=== PATIENT | female | born 1945 | race Caucasian/White ===

== ENCOUNTER 2016-07-26 19:43 | Emergency (ER) | payer OTHER ==
--- NOTE | ~2016-07-26 | EKG ---
PATIENT: JUANCARLOSJuly UNIT #: [id number] Ventricular Rate: 69 BPM Atrial Rate: 69 BPM P-R Interval: 144 ms QRS Duration: 76 ms Q-T Interval: 394 ms QTC Calculation(Bezet): 422 ms P Oxford: 86 degrees Calculated R Oxford: 74 degrees Calculated T Oxford: 63 degrees Diagnosis Line: Normal sinus rhythm Diagnosis Line: Left ventricular hypertrophy with repolarization Diagnosis Line: abnormality Diagnosis Line: Abnormal ECG Diagnosis Line: When compared with ECG of 17-MAY-2016 16:10, Diagnosis Line: Criteria for Anterior infarct are no longer Diagnosis Line: Present Diagnosis Line: Non-specific change in ST segment in Anterior Diagnosis Line: leads Diagnosis Line: T wave inversion now evident in Lateral leads Diagnosis Line: Confirmed by MARINE RODNEY MD ([id number]) on 07/27/2016 Diagnosis Line: 6:33:34 AM INTERPRETING MD: RONEL LOMBARDO
--- NOTE | ~2016-07-26 | CR72 ---
[facility] A Service of [facility] RADIOLOGY TEXT RESULTS PATIENT: JUANCARLOS LOCATION: [employer] : [birth year] UNIT #: [id number] AGE: [address]: Eliud Rao MD SEX: F ORDER DR: [id number] [facility] [address] [place], [place] [address] [id number] MR#: [id number] Acc #: [id number] NAME: JUANCARLOSJuly : 1945 SEX: F STUDY DATE/TIME: 07/26/2016 19:17 UNIT: [employer] ROOM: STUDY DESCRIPTION: CR Chest Single View Portable Attending Physician: Eliud Rao M.D. Ordering Physician: Eliud Rao M.D. Primary Care Physician: Solo Echols M.D. MEDICAL IMAGING REPORT This report is preliminary unless electronic signature is present EXAM Portable chest HISTORY Near-syncopal episode today, weakness. COMPARISON 05/01/2016 FINDINGS Portable view of the chest demonstrates pulmonary hyperinflation and hyperlucency compatible with emphysema. No acute airspace disease or consolidation. Stable right upper lobe nodule. Heart and mediastinum unremarkable. Osseous structures unremarkable for age. Dictated by... Billie Forrest M.D. THIS IS AN ELECTRONICALLY VERIFIED REPORT Billie Forrest M.D. at 07/27/2016 6:36 PM RUDDY/tabatha TD: 07/26/2016 23:26 JOB #: [id number] MEDICAL IMAGING REPORT Page 1 of 1 COPY
[2016-07-26 19:43] LABS: BASOPHIL# 0.1 X10e3 (0-0.3); BASOPHIL% 0.8 % (0-2.5); EOSINOPHIL# 0.1 X10e3 (0-0.7); EOSINOPHIL% 0.8 % (0.0-7.0); HEMATOCRIT 39.8 % (35.0-45.0); HEMOGLOBIN 13.3 gm/dL (12.0-16.0); LYMPHOCYTE# 1.5 X10e3 (1.0-3.5); LYMPHOCYTE% 22.7 % (17.0-45.0); MEAN CELL VOLUME 92.3 FL (83-96); MEAN CORPUSCULAR HEMOGLOBIN 30.9 PG (28-34); MEAN CORPUSCULAR HGB CONC 33.4 g/dL (30-36); MEAN PLATELET VOLUME 9.5 FL (6.5-11.5); MONOCYTE# 0.5 X10e3 (0-1.0); MONOCYTE% 7.2 % (3.0-12.0); NEUTROPHIL# 4.6 X10e3 (1.5-7.1); NEUTROPHIL% 68.5 % (40-75); PLATELET COUNT 273 X10e3 (140-420); RED BLOOD COUNT 4.31 X10e (3.90-5.30); WHITE BLOOD COUNT 6.7 X10e3 (4.0-10.5)
[~2016-07-26 19:43] MED LIST: ALB/IPRATROPIUM/1 E1 INH; ALBUTEROL17 GM INH; ALLEGRA PO; AMITRIPTYLINE H50 MG PO; AMITRYPTYLINE PO; AMOXICILLIN875 MG PO; ASPIRIN81 M2 PO; ASPIRIN81 MG; ATARAX; AUGMENTIN PO; BENTYL20 MG PO; CARVEDILOL3.125 MG; CELEXA20 MG PO; CIPRO PO; CLARITIN10 M2 PO; EXCEDRIN EXTRA1 TAB PO; FIORICET PO; FIORICET1 TAB PO; FLEXERIL PO; FLONASE 0.05% N16 G1; FLONASE16 GM; FOSAMAX PO; FOSAMAX40 MG PO; FOSAMAX70 MG PO; GABAPENTIN300 MG PO; GABAPENTIN400 MG; GLIPIZIDE10 MG; GLIPIZIDE5 MG/BOTT1 PO; GLUCOMETER DE1 STRIP IN; GLUCOMETER DEX1 PKT IN; GLUCOPHAGE500 M1 PO; HUMALOG INSULIN SQ; HUMALOG MI100 UNIT/1; HUMALOG MI100 UNIT/2; HUMALOG MIX 75/10 ML SQ; HUMALOG100 U/M1; HUMALOG100 U/M1 SUBQ; HUMALOG100 U/M2 SUBQ; HUMULIN 70/30 V10 ML; HUMULIN N100 U/ML; HUMULIN N300 U/3 ML SUBQ; HUMULIN SUBQ; INSULIN 75/25 SQ; K-DUR20 ME1 PO; LAMISIL250 MG PO; LEVAQUIN750 MG PO; LISINOPRIL5 MG PO; LORTAB 101 TAB 10/5; LORTAB 5/500 TA1 TA1 PO; MACROBID 100 M100 MG PO; MELOXICAM15 MG PO; METFORMIN PO; MIX SUBQ; MOBIC PO; MOTRIN IB200 M1 PO; MOTRIN600 M1; NEURONTIN PO; NEURONTIN100 MG; NEURONTIN100 MG PO; NORCO 5/325 TAB1 TAB PO; NORTRIPTYLINE H50 MG PO; NOVOLOG FL100 UNIT/1 SUBQ; PAXIL PO; PERCOCET 5-3251 TAB PO; PERCOCET PO; PERCOCET5/325 PO; PHENERGAN PO; PHENERGAN12.5 MG PO; PHENERGAN25 MG PO; PREDNISONE PO; PREDNISONE10 MG PO; PREVACID; PROAIR HFA8.5 GM; ROBAXIN500 MG; RYBIX ODT50 MG; SYMBICORT; SYMBICORT INH; SYMBICORT80; TRAMADOL HCL50 M1 PO; TRAMADOL HCL50 M2 PO; TRAZODONE PO; ULTRAM PO; VICODIN PO; ZANAFLEX PO; ZANAFLEX4 M1 PO; ZESTRIL5 MG PO; ZITHROMAX1 G/PKT PO
[2016-07-26 19:44] LABS: DIFF IND NO
[2016-07-26 19:47] LABS: URINE SOURCE CLEAN CATCH
[2016-07-26 19:49] LABS: POC - CKMB <1.0 ng/mL (0.0-7.9); POC - TROPONIN <0.05 ng/mL (<=0.05)
[2016-07-26 19:51] LABS: URINE APPEARANCE CLEAR; URINE BILIRUBIN NEG (NEG); URINE BLOOD NEG (NEG); URINE COLOR YELLOW; URINE GLUCOSE >1000 MG/DL (NEG); URINE KETONE NEG (NEG); URINE LEUKOCYTE ESTERASE NEG (NEG); URINE NITRATE NEG (NEG); URINE PH 6.5 (5-8); URINE PROTEIN 1+ (NEG); URINE SPECIFIC GRAVITY 1.036 (1.003-1.035); URINE UROBILINOGEN 0.2 MG/DL (NEG)
[2016-07-26 19:53] LABS: URBCS1 AUWI 0-2 /[HPF] (0-2); URINE BACTERIA AUWI NEG (NEGATIVE); URINE SQUAMOUS EPITHELIAL CELL NONE SEEN /[HPF]; UWBCS1 AUWI 0-2 (0-5)
[2016-07-26 20:09] LABS: ALKALINE PHOSPHATASE 106 U/L (32-92); ALT (SGPT) 16 U/L (10-40); AST (SGOT) 15 U/L (10-42); BILIRUBIN,TOTAL 0.4 mg/dL (0.2-2.0); BLOOD UREA NITROGEN 8 mg/dL (9-23); CALCIUM SERUM 9.5 mg/dL (8.4-10.2); CARBON DIOXIDE 33 mmol/L (22-31); CHLORIDE 97 mmol/L (100-111); CREATININE SERUM 0.5 mg/dL (0.6-1.4); GLOM FILT RATE Estimated 98.1 mL/min (>60); GLUCOSE FASTING 339 mg/dL (70-110); PROTEIN TOTAL SERUM 7.3 g/dL (6.0-8.3); SODIUM 140 mmol/L (135-145)
[2016-07-26 20:11] LABS: CULTURE INDICATED? NO
[2016-07-26 20:11] LABS: BILIRUBIN, DIRECT <0.1 mg/dL (0.0-0.2); BILIRUBIN,INDIRECT 0.3 mg/dL (0.0-0.9); POTASSIUM 2.7 mmol/L (3.5-5.1)
== END 2016-07-26 22:18 | disposition home or self-care (01) ==
LOC: CED 19:43
PROVIDERS: Emergency Medicine
DX: E86.0 Dehydration (principal); E87.6 Hypokalemia; E11.65 Type 2 diabetes mellitus with hyperglycemia; R55 Syncope and collapse; E11.40 Type 2 diabetes mellitus with diabetic neuropathy, unspecified; J44.9 Chronic obstructive pulmonary disease, unspecified; I10 Essential (primary) hypertension; G43.909 Migraine, unspecified, not intractable, without status migrainosus; F32.9 Major depressive disorder, single episode, unspecified; F17.210 Nicotine dependence, cigarettes, uncomplicated; Z90.49 Acquired absence of other specified parts of digestive tract; Z98.890 Other specified postprocedural states; Z88.2 Allergy status to sulfonamides; Z88.5 Allergy status to narcotic agent
CPT/HCPCS: 36415; 71010; 80048; 80076; 81003; 82553; 82947; 84484; 85025; 93005; 96360; 96361; 99284

== ENCOUNTER 2016-08-01 22:03 | Inpatient (IN) | payer OTHER ==
--- NOTE | ~2016-08-01 | CR72 ---
[facility] A Service of [facility] RADIOLOGY TEXT RESULTS PATIENT: LOCATION: [facility] : 47 UNIT #: [id number] AGE: [address]: Eliud Rao MD SEX: F ORDER DR: [id number] [facility] [address] [place], [place] [address] [id number] MR#: [id number] Acc #: [id number] NAME: July : 1945 SEX: F STUDY DATE/TIME: 08/01/2016 20:51 UNIT: [facility] ROOM: STUDY DESCRIPTION: CR Chest Single View Portable Attending Physician: Eliud Rao M.D. Ordering Physician: Eliud Rao M.D. Primary Care Physician: Solo Echols M.D. MEDICAL IMAGING REPORT This report is preliminary unless electronic signature is present EXAM Frontal chest 08/01/2016 INDICATIONS 71-year-old female with history of altered mental status, shortness of air, low blood sugar. Symptoms began today. COPD. Hypertension. TECHNIQUE Frontal chest compared with 07/26/2016. FINDINGS Cardiac silhouette is within normal limits. The vascularity is unremarkable. Lungs demonstrate advanced emphysematous change. There is old healed granulomatous disease. No effusion pneumothorax or dense consolidation. There is bilateral mid- to upper lung zone scarring. Upper lung zone nodule on the right is unchanged. IMPRESSION 1. Advanced emphysematous changes in the lungs. No definite superimposed active disease. 2. Stable upper lung zone nodule on the right. Dictated by... Cain Araujo M.D. THIS IS AN ELECTRONICALLY VERIFIED REPORT Cain Araujo M.D. at 08/01/2016 10:25 PM JESE/jt TD: 08/01/2016 21:57 [facility] A Service of [facility] RADIOLOGY TEXT RESULTS PATIENT: LOCATION: [facility] : 47 UNIT #: [id number] AGE: [address]: Eliud Rao MD SEX: F ORDER DR: JOB #: [id number] MEDICAL IMAGING REPORT Page 1 of 1 COPY
--- NOTE | ~2016-08-01 | CO ---
Unit #: [id number] #: [id number] Patient: [id number] [place] [id number] [facility] [place] [facility]. [place], [place] [address] [id number] I MR#: [id number] NAME: KRISTINA BAUER ROOM: 217 Age: 71 Sex: F Admission Date: 08/01/2016 : 1945 Attending Physician: Debbi Galdamez M.D. Primary Care Physician: Solo Echols M.D. Consultation Date: 08/10/2016 CONSULTATION REPORT REASON FOR CONSULTATION Followup. DISCUSSION Ms. Kristina Bauer is a 71-year-old female, seen in room 217, bed 1 on 08/10/2016 at [facility]. The patient was cooperative. The patient was alert, awake, redirectable. No aggressive behavior. The patient did not show any aggression or agitation. The patient's vital signs; temperature 98.1, pulse 86, respirations 18, blood pressure 173/70, oxygen saturation 96%. Currently, social worker clinical is working on appropriate placement for the patient, sent referrals to [facility]; [facility]; [facility]. The patient continues to have mood lability, unable to give coherent information. REVIEW OF SYSTEMS Complete review of systems is unremarkable. MENTAL STATUS EXAMINATION General appearance, the patient dressed casually in hospital attire, lying comfortably in bed. Attention span and concentration, poor. Speech, slow. Oriented in self. Mood and affect, labile. Thought process, circumstantial. Thought content, guarded. Recent and remote memory, poor. Language, fair. Fund of knowledge, fair to poor. Insight and judgment, impaired. DIAGNOSIS Psychiatric: Major neurocognitive disorder secondary to Alzheimer disease with behavioral disturbances, F02.81. ASSESSMENT AND PLAN 1. Supportive psychotherapy and psychoeducation provided to patient, but the patient unable to comprehend much. 2. Advised to continue with current medication combination at this time. If needed, consider further adjustment of medication. The patient is currently on Risperdal 0.25 mg at bedtime and Remeron 7.5 mg at bedtime. The patient is more awake and alert now with lowering the dosage of medication and reported that she wants to go home. At this time, we are looking for appropriate placement as mentioned above. Please feel free to call if any questions, telephone #[phone]. Dictated by... Raul Abdullahi M.D. Unit #: [id number] #: [id number] Patient: [place]OS [facility] TD: 08/10/2016 23:54 JOB #: [id number] CONSULTATION REPORT Page 1 of 1 X Raul Abdullahi MD CONSULTATION REPORT
--- NOTE | ~2016-08-01 | EKG ---
PATIENT: JUANCARLOSJuly UNIT #: [id number] Ventricular Rate: 97 BPM Atrial Rate: 97 BPM P-R Interval: 154 ms QRS Duration: 68 ms Q-T Interval: 348 ms QTC Calculation(Bezet): 441 ms P [place]: 75 degrees Calculated R [place]: 61 degrees Calculated T [place]: 1 degrees Diagnosis Line: Normal sinus rhythm Diagnosis Line: Right atrial enlargement Diagnosis Line: Voltage criteria for left ventricular hypertrophy Diagnosis Line: ST and T wave abnormality, consider lateral ischemia Diagnosis Line: Abnormal ECG Diagnosis Line: When compared with ECG of 01-AUG-2016 20:33, Diagnosis Line: Significant changes have occurred Diagnosis Line: Confirmed by MARIAN FISHER MD ([id number]) on Diagnosis Line: 08/02/2016 9:38:43 PM INTERPRETING MD: LIBORIO
--- NOTE | ~2016-08-01 | CO ---
Unit #: [id number] #: [id number] Patient: [id number] [facility] [address] [place], [place] [address] [id number] I MR#: [id number] NAME: KRISTINA BAUER ROOM: 217 Age: 71 Sex: F Admission Date: 08/01/2016 : 1945 Attending Physician: Debbi Galdamez M.D. Primary Care Physician: Solo Echols M.D. Consultation Date: 08/19/2016 CONSULTATION REPORT REASON FOR CONSULTATION Followup. DISCUSSION Ms. Kristina Bauer is a 71-year-old white female seen on 08/19/16 in room 217 bed 1 at [facility]. Patient was pleasant and cooperative during interview but still confused, problem with the memory, redirectable, still gets frustrated, upset easily, compliant with medication, eating well, sleeping fair. Vital signs: Temperature 97.6, heart rate 77, respirations 16, blood pressure 143/55, oxygen saturation 96%. REVIEW OF SYSTEMS Complete review of systems unremarkable. MENTAL STATUS EXAMINATION GENERAL APPEARANCE: Patient dressed casually in hospital attire, lying comfortably in bed. ATTENTION SPAN AND CONCENTRATION: Fair. SPEECH: Low in volume, long pauses. ORIENTATION: Oriented in place and person. MOOD AND AFFECT: Labile. THOUGHT PROCESS: Circumstantial. THOUGHT CONTENT: Guarded. MEMORY: Recent and remote memory fair. LANGUAGE: Intact. FUND OF KNOWLEDGE: Fair. INSIGHT AND JUDGMENT: Fair to slightly impaired. DIAGNOSIS PSYCHIATRIC: Major neurocognitive disorder, due to Alzheimer disease, without behavioral disturbances, F02.80. ASSESSMENT/PLAN 1. Supportive psychotherapy and psychoeducation provided to patient. 2. Educated about benefits and side effects of medication and course and prognosis of illness. 3. Advised to continue with current combination of medications. 4. We will continue to follow. If needed, consider further additional medication. Please feel free to call if any question, telephone number [phone]. Unit #: [id number] #: [id number] Patient: JUANCARLOS Dictated by... Raul Abdullahi M.D. JENNA/diana TD: 08/19/2016 14:21 JOB #: [id number] CONSULTATION REPORT Page 1 of 1 X Raul Abdullahi MD CONSULTATION REPORT
--- NOTE | ~2016-08-01 | CT4 ---
[facility] A Service of [facility] RADIOLOGY TEXT RESULTS PATIENT: JUANCARLOS LOCATION: [facility] 563-01 : [birth year] UNIT #: [id number] AGE: [address]: Debbi Galdamez MD SEX: F ORDER DR: [id number] [facility] [address] [place], [place] [address] [id number] I MR#: [id number] Acc #: [id number] NAME: JUANCARLOSJuly : 1945 SEX: F STUDY DATE/TIME: 08/04/2016 15:29 UNIT: [facility] ROOM: 3 STUDY DESCRIPTION: CT Abd and Pelv Wo Cont Attending Physician: Debbi Galdamez M.D. Ordering Physician: Debbi Galdamez M.D. Primary Care Physician: Solo Echols M.D. MEDICAL IMAGING REPORT This report is preliminary unless electronic signature is present EXAM CT abdomen and pelvis without contrast. HISTORY 71-year-old female, weight loss, elevated CEA times weeks. History of cholecystectomy. COMPARISON CT of abdomen and pelvis, 05/17/2016. TECHNIQUE NOTE: This CT exam was performed with one or more of the following radiation dose reduction techniques: automatic exposure control, adjustment of mA and/or kV according to patient size, and iterative reconstruction. FINDINGS Axial images performed through the abdomen and pelvis without contrast. Multiplanar reconstructed images reviewed at a workstation. ABDOMEN: Lung bases demonstrate emphysematous changes and small bilateral effusions. Liver, spleen unremarkable. Gallbladder absent. There is a small amount of pneumobilia which has been noted on prior studies to include prominence of the common bile duct. This can be a normal finding post-cholecystectomy in the geriatric population. Correlate for clinical symptoms. Small nonobstructing right renal stone. No hydronephrosis. There are several small left renal calcifications, could represent small stones. Subtle area of decreased attenuation lower pole right kidney cannot be fully evaluated on this unenhanced study. This may represent a small cyst as the previous CT did suggest a cystic change in the lower pole right kidney. Moderate amount of colonic stool. Stomach, small bowel unremarkable. No free air or free fluid. The retroperitoneum unremarkable. [facility] [email or web address] A Service of [facility] RADIOLOGY TEXT RESULTS PATIENT: JUANCARLOS LOCATION: [facility] 563-01 : [birth year] UNIT #: [id number] AGE: [address]: Debbi Galdamez MD SEX: F ORDER DR: PELVIS: Cullen catheter seen within a decompressed bladder. Atrophic uterus. No pelvic mass. Stable L4 compression fracture. Questionable generalized body wall edema. Correlate with clinical findings. IMPRESSION 1. No definite acute intraabdominal or intrapelvic pathology identified. The study is limited due to lack of IV and oral contrast and the patient's generalized emaciated state. 2. Small bilateral nonobstructing renal stones. 3. Mild small amount of pneumobilia probably not clinically significant in this patient post-cholecystectomy. 4. Moderate amount of colonic stool, but no impaction or obstruction. Dictated by... Billie Forrest M.D. THIS IS AN ELECTRONICALLY VERIFIED REPORT Billie Forrest M.D. at 08/04/2016 8:37 PM Marques TD: 08/04/2016 19:18 JOB #: [id number] MEDICAL IMAGING REPORT Page 1 of 1 COPY
--- NOTE | ~2016-08-01 | CO ---
Unit #: [id number] #: [id number] Patient: [id number] [facility] [address] [place], [place] [address] [id number] I MR#: [id number] NAME: KRISTINA BAUER ROOM: 217 Age: 71 Sex: F Admission Date: 08/01/2016 : 1945 Attending Physician: Debbi Galdamez M.D. Primary Care Physician: Solo Echols M.D. Consultation Date: 08/08/2016 CONSULTATION REPORT REASON FOR CONSULTATION Followup. DISCUSSION Ms. Kristina Bauer is a 71-year-old white female seen in room 217 bed 1 on 08/08/2016 at [facility]. The patient was very sleepy, currently no sitter. No agitation. The patient's vital signs are 98.0, 78, 22, 128/54, oxygen saturation 97%. The patient's mood continues to be irritable. She is a poor historian. The patient is still having problems with mood lability. Unable to give any coherent information. Complete review of systems is unremarkable. MENTAL STATUS EXAMINATION General appearance is the patient is thin built and casually dressed in hospital attire, lying comfortably in bed. Attention and concentration poor. Speech slow. Orientation to self. Mood and affect labile. Thought process circumstantial. Thought content guarded. Recent and remote memory poor. Language fair. Fund of knowledge fair to poor. Insight and judgment impaired. DIAGNOSIS Psychiatric: Major cognitive disorder secondary to Alzheimer disease with behavior disturbances. F02.81. ASSESSMENT/PLAN 1. Supportive psychotherapy, psychoeducation provided to the patient, but the patient is unable to comprehend much. 2. Educated about benefits and side effects of medication and course of illness, but the patient is unable to comprehend much. 3. Recommending at this time, as the patient is too sleepy, to cut back on the medication, decreasing the Remeron to 7.5 mg at bedtime and decreasing Risperdal to 0.25 mg at bedtime. Advised to continue with the Lexapro. As needed, will make further adjustment of medication. 4. Based on the current assessment, at this time, the patient is unable to make any informed medical decision at this time. Therefore, recommending a social media assistant consult to work on getting [id number] to make medical decisions on her behalf. Please feel free to call if any questions. Telephone number is [phone]. Dictated by... Raul Abdullahi M.D. Unit #: [id number] #: [id number] Patient: JUANCARLOS SZC/gz TD: 08/09/2016 07:30 JOB #: [id number] CONSULTATION REPORT Page 1 of 1 X Raul Abdullahi MD CONSULTATION REPORT
--- NOTE | ~2016-08-01 | CO ---
Unit #: [id number] #: [id number] Patient: [id number] [facility] [address] [place], [place] [address] [id number] I MR#: [id number] NAME: KRISTINA BAUER ROOM: 217 Age: 71 Sex: F Admission Date: 08/01/2016 : 1945 Attending Physician: Debbi Galdamez M.D. Primary Care Physician: Solo Echols M.D. Consultation Date: 08/17/2016 CONSULTATION REPORT REASON FOR CONSULTATION Followup. DISCUSSION Ms. Kristina Bauer is a 71-year-old white female, seen in room 217, bed 1 on 08/17/2016 at [facility]. The patient dressed casually in hospital attire, somewhat restless anxious, irritable. The patient's appetite was poor today, but no agitation, redirectable, cooperative, little confused. The patient's vital signs; temperature 97.6, pulse 76, respirations 18, blood pressure 119/50, oxygen saturation 96%. General appearance, the patient dressed casually. Complete review of systems unremarkable. MENTAL STATUS EXAMINATION General appearance, the patient is thin built, dressed in hospital attire. Attention span and concentration, fair. Speech, regular rate. Oriented to place and self. Mood and affect, labile. Thought process, circumstantial. Thought content, denied any thoughts of harming self or others, but somewhat guarded. Recent and remote memory, fair to poor. Language, fair. Fund of knowledge, fair. Insight and judgment, fair to slightly impaired. DIAGNOSES Psychiatric: Major neurocognitive disorder secondary to Alzheimer disease without behavioral disturbances, F02.80; mood disorder, not otherwise specified, F32.9. ASSESSMENT/PLAN 1. Supportive psychotherapy and psychoeducation provided to the patient. 2. Educated about benefits and side effects of medication and course and prognosis of illness. 3. Advised to continue with current medication. If needed, consider further adjustment of medication. We will continue to follow. Please feel free to call if any question telephone #[phone]. Dictated by... Raul Abdullahi M.D. JENNA/lori TD: 08/17/2016 21:21 JOB #: [id number] Unit #: [id number] #: [id number] Patient: JUANCARLOS,JULY CONSULTATION REPORT Page 1 of 1 X Raul Abdullahi MD CONSULTATION REPORT
--- NOTE | ~2016-08-01 | FU ---
[facility] Nutrition Therapy DATE: 08/13/16 Patient: ANA BAUER Physician: KRISTA Address: [address] [place] [address] Room/Bed: [address] [place] [address], Zip: [place] [address] Admit Date: 08/01/16 Date of : [birth year] Height: 5 1 Weight: 72 32.8 NUTRITION MONITORING/FOLLOW-UP: Reason: PT SEEN FOR FOLLOW-UP DX: HYPOGLYCEMIA, AFIB Anthropometrics: 4'11", WT: 72# (33 KG), BMI: 14.5 -WEIGHTS HAVE RANGED 70-80# SINCE ADMIT Labs: GLU: 130, CREAT: 0.4, A1c: 11.4 Meds: PROTONIX, NOVOLOG, LAXATIVE, NACL, LEVEMIR, REMERON I&O's: 950/910 Skin: REDNESS COCCYX; DRY CRACKED FEET; SCAR ABD; DRY SKIN NOTED ALL OVER BODY Estimated Nutrition Needs: INCREASED NUTRIENT NEEDS 2' PT UNDERWEIGHT Assessment: CHART REVIEWED AND EVENTS NOTED. PT SEEN FOR FOLLOW-UP. PT REPORTS APPETITE IMPROVING, TOLERATING PO INTAKE, NOTING CONSUMING ~50% OF MEALS. PT REPORTS NOT RECEIVING ENSURE PUDDING BUT REQUESTS THEM, RD TO RE-ORDER. THIS RD ENCOURAGED ADEQUATE KCAL AND PROTEIN INTAKE, PT AGREED. PT REPORTED NO DIET QUESTIONS AT THIS TIME. RD TO CONTINUE TO FOLLOW. PER RN AND CHART, AWAITING PLACEMENT AT THIS TIME. Dx: UNDERWEIGHT R/T POOR INTAKE AEB BMI OF 14.5.-ACTIVE/RESOLVED NEW DX: UNDERWEIGHT R/T LIFESTYLE, DIET AEB BMI OF 14.5. Intervention: 1. CC DIET 2. ENSURE PUDDING TID Monitoring, Evaluation and Goals: 1. ORAL INTAKE; CONSUME MEALS AND SUPPLEMENTS W/NO C/O N/V/D (PO>50%)-ACTIVE 2. WEIGHTS; PROMOTE GRADUAL WEIGHT GAIN-ACTIVE 3. LABS; WNL-ACTIVE MONITOR: -PO INTAKE/APPETITE -WEIGHTS -SUPPLEMENT INTAKE -LABS Recommendations: [facility] Nutrition Therapy DATE: 08/13/16 Patient: ANA BAUER Physician: KRISTA Address: [address] [place] [address] Room/Bed: [address] [place] [address], Zip: [place] [address] Admit Date: 08/01/16 Date of : [birth year] Height: 5 1 Weight: 72 32.8 1. PLEASE RE-ORDER VANILLA ENSURE PUDDING TID W/MEALS 2. APPRECIATE FAMILY AND STAFF TO CONTINUE TO ENCOURAGE KCAL AND PROTEIN INTAKE RD WILL F/U PER PROTOCOL PT IS MILDLY COMPROMISED Respectfully, PIERCE PARKS MS, RD, LD [facility] cc: client file
--- NOTE | ~2016-08-01 | CO ---
Unit #: [id number] #: [id number] Patient: [id number] [facility] [address] [place], [place] [address] [id number] I MR#: [id number] NAME: KRISTINA BAUER ROOM: 217 Age: 71 Sex: F Admission Date: 08/01/2016 : 1945 Attending Physician: Debbi Galdamez M.D. Primary Care Physician: Solo Echols M.D. Consultation Date: 08/16/2016 CONSULTATION REPORT REASON FOR CONSULTATION Followup. DISCUSSION Ms. Kristina Bauer is a 71-year-old white female, seen in room 217, bed 1 on 08/16/2016 at [facility]. The patient thin built, casually dressed, lying comfortably in bed. The patient denied any complaints. Denied any suicidal or homicidal ideation. Denied any psychotic symptom, but somewhat confused and guarded. No agitation. The patient was redirectable. Vital signs stable; temperature 98.2, pulse 77, respiratory rate 18, blood pressure 120/50, oxygen saturation 97%. The patient reports that she would like to go home. home support worker is currently working on appropriate placement. REVIEW OF SYSTEMS Complete review of systems is unremarkable. MENTAL STATUS EXAMINATION General appearance; the patient thin built, dressed casually in hospital attire, lying comfortably in bed. Attention span and concentration, fair. Speech, regular rate. Oriented in place and person. Mood and affect were labile. Thought process, coherent to circumstantial. Thought content, guarded, but denied any thoughts of harming self or others. Denied any hallucination. Recent and remote memory, fair to poor. Language, intact. Fund of knowledge, fair. Insight and judgment, fair to slightly impaired. DIAGNOSIS Major neurocognitive disorder due to Alzheimer disease without behavioral disturbances, F02.80. ASSESSMENT AND PLAN 1. Supportive psychotherapy and psychoeducation provided to the patient. 2. Educated about benefits and side effects of medication and course and prognosis of illness. 3. Advised to continue with current combination of medication. If needed, consider further adjustment of medication. Please feel free to call if any questions, telephone #[phone]. Dictated by... Trixie Rosas/lori Unit #: [id number] #: [id number] Patient: CHAYITO TD: 08/17/2016 01:42 JOB #: [id number] CONSULTATION REPORT Page 1 of 1 X Raul Abdullahi MD CONSULTATION REPORT
--- NOTE | ~2016-08-01 | FU ---
[facility] Nutrition Therapy DATE: 08/06/16 Patient: ANA BAUER Physician: KRISTA Address: [address] [place] [address] Room/Bed: [address] [place] [address], Zip: [place] [address] Admit Date: 08/01/16 Date of : [birth year] Height: 5 1 Weight: 80 36.6 NUTRITION MONITORING/FOLLOW-UP: Reason: Nutrition follow-up Anthropometrics: Ht: 4'11" Adm wt: 33.6 kg (74#) BMI: 14.9 Current wt: 36.4 kg (80#) Labs: Gluc 133, Creat 0.4, POC 223 Meds: D5%, Protonix, Novolog, Laxative of choice, NaCl I&O's: 3400/1825, last BM 08/02 Skin: Redness (coccyx), dry cracked feet, scar (abd), very dry skin (generalized), no edema noted Estimated Nutrition Needs: Increased d/t low BMI Assessment: Chart reviewed, events noted. Pt is on a consistent carb + dental soft + NDD2 diet + nectar thick liquids. Pt reported great appetite and being very hungry. Pt had not recieved breakfast yet and stated she was hungry and needed to eat d/t having T2DM and feeling lightheaded. Pt no longer able to have Ensure shakes d/t nectar thick liquid restriction. RD events intern encouraged Ensure pudding, pt agreed. Pt had no diet questions at this time. See recommendations below. Dx: Inadequate oral intake RT clinical condition AEB low BMI, weight loss. -NUTRITION PROBLEM RESOLVED New dx: Underweight RT poor intake AEB 14.9 BMI. Intervention: 1. Ensure pudding TID 2. Consistent carb + dental soft + NDD2 diet Monitoring, Evaluation and Goals: 1. PO intake; consume >75% of meals and supplements -MET 2. Weight; prevent unintentional weight loss, promote weight gain -IN PROGRESS 3. Labs; WNL -IN PROGRESS Recommendations: 1. Please d/c Ensure shakes and order Ensure pudding TID w/ meals d/t nectar thick liquid restriction. [facility] Nutrition Therapy DATE: 08/06/16 Patient: ANA BAUER Physician: KRISTA Address: [address] [place] [address] Room/Bed: [address] [place] [address], Zip: [place] [address] Admit Date: 08/01/16 Date of : [birth year] Height: 5 1 Weight: 80 36.6 2. Apprecaite family and staff to encourage adequate calorie/protein intake. Status: Pt is at a mild nutritional risk. RD will f/u per protocol. Respectfully, Kayla Ornelas, Watch Commander Nimo Brown MS, RD, LD Food and Nutritional Services [facility] cc: client file
--- NOTE | ~2016-08-01 | EKG ---
PATIENT: JUANCARLOSJuly UNIT #: [id number] Ventricular Rate: 119 BPM Atrial Rate: 108 BPM QRS Duration: 84 ms Q-T Interval: 346 ms QTC Calculation(Bezet): 486 ms Calculated R Chapman: 75 degrees Calculated T Chapman: -98 degrees Diagnosis Line: Atrial fibrillation with rapid ventricular Diagnosis Line: response Diagnosis Line: Left ventricular hypertrophy Diagnosis Line: Marked ST abnormality, possible inferior Diagnosis Line: subendocardial injury Diagnosis Line: Marked ST abnormality, possible anterior Diagnosis Line: subendocardial injury Diagnosis Line: Abnormal ECG Diagnosis Line: When compared with ECG of 26-JUL-2016 19:23, Diagnosis Line: Atrial fibrillation has replaced Normal sinus Diagnosis Line: rhythm Diagnosis Line: Confirmed by MARINE RODNEY MD ([id number]) on 08/02/2016 Diagnosis Line: 5:07:40 AM INTERPRETING MD: RONEL LOMBARDO
--- NOTE | ~2016-08-01 | CO ---
Unit #: [id number] #: [id number] Patient: [id number] [facility] [address] [facility]. [place], [place] [address] [id number] I MR#: [id number] NAME: KRISTINA BAUER ROOM: 217 Age: 71 Sex: F Admission Date: 08/01/2016 : 1945 Attending Physician: Debbi Galdamez M.D. Primary Care Physician: Solo Echols M.D. Consultation Date: 08/15/2016 CONSULTATION REPORT REASON FOR CONSULTATION Followup. DISCUSSION Ms. Kristina Bauer is a 71-year-old white female seen in room 217, bed one on 08/15/16 at [facility]. The patient was pleasant, cooperative, somewhat confused, guarded but no agitation. The patient was able to eat her breakfast by herself, redirectable but confused, guarded, somewhat paranoid. The patient's vital signs: 98.1, 69, 16, 144/91. Oxygen saturation 98%. The patient is compliant with her medication, sleeping good, currently on Risperdal and Remeron combination and also taking Lexapro. REVIEW OF SYSTEMS Complete review of systems is unremarkable. MENTAL STATUS EXAMINATION GENERAL APPEARANCE: Patient dressed casually, thin built, dressed in hospital attire. ATTENATION SPAN AND CONCENTRATION: Fair. SPEECH: Regular rate. ORIENTATION: Oriented in place and person. MOOD AND AFFECT: Labile. THOUGHT PROCESS: Circumstantial. THOUGHT CONTENT: Guarded, paranoid but denying thoughts of harming self or others. RECENT AND REMOTE MEMORY: Fair to poor. LANGUAGE: Intact. FUND OF KNOWLEDGE: Fair. INSIGHT AND JUDGMENT: Fair to slightly impaired. DIAGNOSIS Psychiatric: 1. Major neurocognitive disorder secondary to Alzheimer disease without behavioral disturbances, F02.80. 2. Major depressive disorder, recurrent, F33.2. SECONDARY DIAGNOSIS Deferred. ASSESSMENT/PLAN 1. Supportive psychotherapy and psychoeducation provided to patient. 2. Educated about benefits and side effects of medication and course and prognosis of illness. Unit #: [id number] #: [id number] Patient: JUANCARLOS 3. Advised to continue with the current medication. If needed, consider further adjustment of medication. Please feel free to call if any question, telephone number, . Dictated by... Trixie Rosas TD: 08/16/2016 08:32 JOB #: [id number] CONSULTATION REPORT Page 1 of 1 X Raul Abdullahi MD CONSULTATION REPORT
--- NOTE | ~2016-08-01 | DS ---
Unit #: [id number] #: [id number] Patient: [id number] [place], [place] [address] [id number] I MR#: [id number] NAME: CHAYITOJuly ROOM: 217 Age: 71 Sex: F Admission Date: 08/01/2016 : 1945 Discharge Date: 08/20/2016 Attending Physician: Debbi Galdamez M.D. Primary Care Physician: Solo Echols M.D. DISCHARGE SUMMARY DISCHARGE DIAGNOSES 1. Dementia with behavior disorder. 2. Poor social support. 3. Atrial fibrillation, now in normal sinus rhythm. 4. Weight loss, protein deficient malnutrition. 5. Failure to thrive. 6. Hypoglycemic event. 7. History of chronic obstructive pulmonary disease. 8. Prior cerebrovascular accident. 9. History of chronic migraine. 10. Peripheral neuropathy. CONSULTANTS 1. [facility]. 2. Dr. Abdullahi of psychiatry. 3. Dr. La of gastroenterology. PROCEDURES None. DIAGNOSTIC STUDIES IMAGING: Chest x-ray on 07/26/2016. Findings - Pulmonary hyperinflation and hyperlucency compatible with emphysema. No airspace disease or consolidation. Stable right upper lobe nodule. X-ray on 08/01/16. Impression - Advanced emphysematous changes in the lungs. No definite superimposed active disease. Stable upper lung zone nodule in the right. Ultrasound of left upper extremity. Impression - Normal examination. CT chest without contrast on 08/02/16. Impression - Chronic fibronodular fibrotic changes at the right apex are stable since 2013. No new infiltrates are seen. No active process in the chest. CT abdomen and pelvis, 08/04/16. Impression - No definite acute intraabdominal or intrapelvic pathology identified. Two small bilateral nonobstructing renal stones. Mild small amount of pneumobilia probably not clinically significant. Moderate amount of colonic stool, but no impaction or obstruction. HOSPITAL COURSE Patient is a pleasant 71-year-old female, with past medical history of type 2 diabetes, paroxysmal atrial fibrillation, migraine headache, Unit #: [id number] #: [id number] Patient: peripheral neuropathy, COPD with ongoing tobacco use, prior CVA, degenerative joint disease, who presented to the emergency department due to the patient's concern with agonal breathing. Patient lives at home with her son, and he last saw that she was normal around 3 o'clock in the evening on the day of admission. When he came home 2 hours afterward, the patient was foaming at the mouth with agonal breathing. EMS was called. Blood sugar was read as low on the glucometer. She was given 1 amp of D50 and brought to the emergency department where she required a second amp of D50 with persistently low blood sugar. In the ambulance, she was noted to be in atrial fibrillation with rapid ventricular rate, which is new. She was given 10 mg of IV Cardizem in the ER. It was noted that her potassium was 1.8, and her was magnesium of 1.5 in the emergency department. Patient was noted by her son on admission that she does not take her medicines adequately and does not eat adequately. Patient was admitted for new atrial fibrillation with rapid ventricular rate and diabetes with hypoglycemia. She was seen in consultation with cardiology, and she was treated with beta-tashia, Lopressor 25 mg twice daily for rate control. Please note the patient did convert from atrial fibrillation to normal sinus rhythm. Due to her advanced age, it was felt that the patient is not a good anticoagulant candidate. There was also some concern with nausea and vomiting and occult positive stool. Gastroenterology was consulted. Dr. La had planned for colonoscopy, but due to her advanced dementia, this was actually held, and there are no plans for colonoscopy that I know of at this point. Patient did respond to hypoglycemia by reducing her home Levemir instead of twice daily to use 10 units daily, along with sliding scale insulin. Due to her advanced age, minimal intake and hypoglycemic event, it was felt that it was best the patient be continued on Levemir once a day and NovoLog as needed only. She was seen in consultation with speech therapy, as well as nutrition in regard to her dysphagia and her severe protein malnutrition. At this time patient's diet is to be mechanical soft with thickener. No mixed consistencies and is to also have vanilla Ensure pudding twice daily with meals, as well as a consistent carb diet for her diabetes. Patient's medical condition has stabilized, and she was ready for discharge, but she does have such poor social support at home; the one son that she lives with takes her social security checks and uses it for his IV drug habit. She does have another son who does not live with her, but he has lost his job and stated that he will not be able to care for her. Therefore, through the assistance of senior production planner, she did have medicaid application filled out by her son and will be discharged to [facility], as she is not able to care for herself, nor is her son able to care for her. Dr. Abdullahi has seen patient multiple times due to her dementia with behavior disturbance. At this time, the patient is stable and is ready to be discharged to [facility] with Medicaid application submitted and pending. DISCHARGE CONDITION Stable to [facility]. Unit #: [id number] #: [id number] Patient: DISCHARGE DIET Mechanical soft with nectar thickened. The patient is to remain upright and only eat when she is awake and alert, to remain upright with the head of bed at least 30 degrees after meals. She is also to have vanilla Ensure pudding twice daily with her meals, and please give her consistent carb due to her diabetes. ACTIVITIES Nonrestricted. DISCHARGE MEDICINES 1. Lexapro 10 mg orally daily. 2. Remeron 7.5 mg orally at bedtime. 3. Risperdal 0.5 mg orally at bedtime. 4. Lopressor 25 mg orally b.i.d. 5. Patient can have laxative of choice. 6. Levemir 10 units subcutaneously in the morning. 7. Low dose sliding scale prior to meals and at bedtime. 8. Omeprazole 40 mg orally daily. NOTE: This dictation did take 45 minutes, to include coordinating care, chart review, to update the patient. Dictated by... Marcus Camejo PA-C for Trixie Lamb/elise TD: 08/20/2016 14:23 JOB #: [id number] DISCHARGE SUMMARY Page 1 of 1 X X DISCHARGE SUMMARY
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
--- NOTE | ~2016-08-01 | CO ---
Unit #: [id number] #: [id number] Patient: ANA BAUER [id number] [facility] [address] [facility]. [place], [place] [address] [id number] MR#: [id number] NAME: ANA BAUER ROOM: 562 Age: 71 Sex: F Admission Date: 08/01/2016 : 1945 Attending Physician: Debbi Galdamez M.D. Primary Care Physician: Solo Echols M.D. Consultation Date: 08/04/2016 CONSULTATION REPORT REASON FOR CONSULTATION Confusion. HISTORY OF PRESENT ILLNESS Ms. Acevedo is a 71-year-old white female, seen in room 563, bed 1 on 08/04/2016 at [facility]. The patient has a sitter. The patient was confused and unable to give any reliable information. Chart reviewed. Obtained information from sitter and the nursing staff. The patient's vital signs; temperature 98.8, pulse 74, respirations 18, blood pressure 113/46. The patient was admitted on 08/01/2016. The patient was admitted with the electrolyte abnormalities. The patient was confused. The patient was oriented in self. The patient was somewhat guarded, paranoid, and diagnosed with dementia, but no aggressive behavior or any suicidal or homicidal ideation. PAST PSYCHIATRIC HISTORY Remarkable for history of dementia and history of paranoia. PAST MEDICAL HISTORY The patient has a history of migraine headache, palpitation, peripheral neuropathy, COPD, prior CVA, history of DJD, cholecystectomy, previous pelvic fracture. ALLERGIES To codeine. MEDICATIONS The patient is on Zestril, Ultram, Protonix, NovoLog, Lopressor, MiraLAX. FAMILY HISTORY AND SOCIAL HISTORY The [facility] is a [facility]. No history of any abuse. No history of any substance abuse. REVIEW OF SYSTEMS Complete review of systems is unremarkable except as mentioned above, confusion. MENTAL STATUS EXAMINATION Vital signs are stable. General appearance, the patient dressed in hospital attire, lying comfortably in bed. Having problem with the confusion in the evening. Attention span and concentration, poor. Speech, slow. Orientation in self. Mood and affect, labile. Thought process, circumstantial. Thought content, guarded, paranoid, but denied any thoughts of harming self or others. Recent and remote memory, poor. Unit #: [id number] #: [id number] Patient: Language, fair. Fund of knowledge, impaired. Insight and judgment, impaired. DIAGNOSES Psychiatric: Major neurocognitive disorder secondary to Alzheimer disease with behavioral disturbances, F02.81; delirium, F05. Secondary diagnosis: Deferred. Medical diagnosis: Please refer to H and P. Stressors: Psychosocial stressors. ASSESSMENT AND PLAN 1. Supportive psychotherapy and psychoeducation provided to the patient, but the patient unable to comprehend much. 2. Educated about benefits and side effects of medication and course and prognosis of illness, but the patient unable to comprehend much. 3. Recommending at this time to add Risperdal 0.25 mg q.12 hours for the above-mentioned symptom. If needed, consider further adjustment of medication. We will continue to follow. Please feel free to call if any questions, telephone #[phone]. Dictated by... Trixie Rosas/lori TD: 08/06/2016 00:04 JOB #: [id number] CONSULTATION REPORT Page 1 of 1 X Raul Abdullahi MD X CONSULTATION REPORT
--- NOTE | ~2016-08-01 | CT57 ---
[facility] A Service of [facility] RADIOLOGY TEXT RESULTS PATIENT: LOCATION: [facility] [place] [facility] 5606-13 : [birth year] UNIT #: [id number] AGE: [address]: Debbi Galdamez MD SEX: F ORDER DR: [id number] [facility] [address]. [place], [place] [address] [id number] MR#: [id number] Acc #: [id number] NAME: July : 1945 SEX: F STUDY DATE/TIME: 08/02/2016 18:48 UNIT: [facility] [place] [facility] ROOM: 3 STUDY DESCRIPTION: CT Chest Wo Cont Attending Physician: Debbi Galdamez M.D. Ordering Physician: Debbi Galdamez M.D. Primary Care Physician: Solo Echols M.D. MEDICAL IMAGING REPORT This report is preliminary unless electronic signature is present EXAM Chest CT without contrast HISTORY Cough and dyspnea for the past 2 days. COMPARISON 03/07/2014. TECHNIQUE Axial images were obtained without contrast and evaluated at lung and mediastinal windows. This CT examination was performed with one or more of the following radiation dose reduction techniques: automatic exposure control, adjustment of mA and/or kV according to patient size, and iterative reconstruction. FINDINGS Chest images at mediastinal window show no mediastinal or hilar adenopathy. There is no evidence of pleural or pericardial fluid. Coronary artery calcifications are seen. Pneumobilia is noted. It was also seen on the previous scan. Lung window imaging shows mixed nodular and linear fibrotic changes at the right apex. This is unchanged from the previous examination and accompanied by traction bronchiectasis. It is likely related to previous granulomatous infection. The remaining lung maria are clear with no new infiltrates identified. IMPRESSION Chronic fibronodular fibrotic changes at the right apex are stable since 2013. No new infiltrates are seen. No active process in the chest. [facility] A Service of [facility] RADIOLOGY TEXT RESULTS PATIENT: LOCATION: [facility] [place] [facility] : [birth year] UNIT #: [id number] AGE: [address]: Debbi Galdamez MD SEX: F ORDER DR: Dictated by... Dustin Otero M.D. THIS IS AN ELECTRONICALLY VERIFIED REPORT Dustin Otero M.D. at 08/03/2016 10:07 AM CHRISTA/enrique TD: 08/03/2016 09:47 JOB #: [id number] MEDICAL IMAGING REPORT Page 1 of 1 COPY
--- NOTE | ~2016-08-01 | A ---
[facility] Nutrition Therapy DATE: 08/02/16 Patient: ANA JUANCARLOS Physician: KRISTA Address: [address] [place] [address] Room/Bed: [address] [place] [address], Zip: [place] [address] Admit Date: 08/01/16 Date of : 47 Height: 5 1 Weight: 74 34.01 NUTRITIONAL ASSESSMENT: REASON: LOW BMI (14.9) PATIENT ADMITTED FOR HYPOGLYCEMIA AND NEW A-FIB PMH: DM, COPD, CVA, CHOLECYSTECTOMY, NEUROPATHY, ANXIETY, DEPRESSION, LIKELY SOME DEMENTIA WITH PARANOIA Anthropometrics: HT: 4'11", WT: 74# (33.6KG), BMI: 14.9 Labs: 08/02/16- K: 3.4, GLU: 165, CREA: 0.4, ALB: 3.3, HGBA1C: 11.4 Meds: KCL, NACL I/O & Bowel function: --/-- Skin Integrity: INTACT Estimated Nutrition Needs: INCREASED 2' TO LOW BMI, WEIGHT LOSS Assessment: PATIENT IS A 75 Y/O FEMALE ADMITTED FOR HYPOGLYCEMIA AND NEW A-FIB. DURING VISIT PATIENT WAS VERY LETHARGIC, DID NOT OPEN HER EYES, AND THERE WAS NO FAMILY AT BEDSIDE. PATIENT IS NOTED TO HAVE CONFUSION WITH LIKELY DEMENTIA WITH PARANOIA. PATIENT STATED "A LOT" OF WEIGHT LOSS, AN OKAY APPETITE, AND THAT SHE DOES NOT DRINK ANY ORAL NUTRITION SUPPLEMENTS AT HOME, HOWEVER DID ASK FOR ENSURE. IT IS NOTED THAT PATIENT HAS BEEN NON-COMPLIANT WITH MEDICATIONS AND DM TREATMENT PRIOR TO ADMIT. THERE ARE NO SKIN OR GI ISSUES NOTED ATT. PATIENT IS ON A CC DIET AND MD HAS ORDERED ENSURE TID. PATIENT DID NOT HAVE ANY NUTRITION EDUCATION QUESTIONS ATT. Dx: INADEQUATE ORAL INTAKE R/T CURRENT CONDITION AEB LOW BMI, WEIGHT LOSS, ABNORMAL LAB VALUES Intervention: CC DIET, ORAL SUPPLEMENTS, MEDS/FLUIDS PER MD, RD ASSESSMENT Monitoring, Evaluation and Goals: 1. ADEQUATE PO INTAKES >50% OF MEALS 2. PREVENT, CORRECT MICRO/MACRO NUTRIENT DEFICIENCIES 3. WEIGHT; PROMOTE A STEADY WEIGHT GAIN TOWARDS A HEALTHY BMI OF 19-25, PREVENT FURTHER WEIGHT LOSS [facility] Nutrition Therapy DATE: 08/02/16 Patient: ANA BAUER Physician: KRISTA Address: [address] Room/Bed: [address] [place] [address], Zip: [place] [address] Admit Date: 08/01/16 Date of : [birth year] Height: 5 1 Weight: 74 34.01 MONITOR: WEIGHTS, LABS, PO/FLUID/SUPPLEMENT INTAKES Recommendations: 1. CONTINUE WITH CC DIET WITH ENSURE TID TOLERATED. IF PATIENT HAS DECREASED APPETITE AND LOW PO INTAKES, MAY CONSIDER ADDING AN APPETITE STIMULANT TO CURRENT MEDICATION REGIMEN. 2. ENCOURAGE ADEQUATE PO, FLUID, AND SUPPLEMENT INTAKES 3. CONSULT RD WITH ANY FUTHER NUTRITION QUESTIONS OR CONCERNS RD TO F/U PER PROTOCOL AND PRN R/T PATIENT MODERATELY/SEVERELY COMPROMISED Respectfully, ORAL PERSON, ELIZABETH, LD [facility] cc: client file
--- NOTE | ~2016-08-01 | CO ---
Unit #: [id number] #: [id number] Patient: [id number] [facility] [address] [place], [place] [address] [id number] I MR#: [id number] NAME: KRISTINA BAUER ROOM: 562 Age: 71 Sex: F Admission Date: 08/01/2016 : 1945 Attending Physician: Debbi Galdamez M.D. Primary Care Physician: Solo Echols M.D. Consultation Date: 08/07/2016 CONSULTATION REPORT REASON FOR CONSULTATION Followup. DISCUSSION Ms. Kristina Bauer is a 71-year-old female, seen in room 562, bed 1 at [facility]. The patient has a sitter, irritable, mood was sad and dysphoric. The patient still having periods of agitation, mood lability, confusion. REVIEW OF SYSTEMS Complete review of systems is unremarkable. MENTAL STATUS EXAMINATION General appearance, the patient dressed casually in hospital attire. The patient's vital signs; temperature 100.7, pulse 80, respirations 16, blood pressure 147/57, oxygen saturation 100%. The patient's attention span and concentration, poor. Speech, slow. Oriented place and self. Mood and affect, labile. Thought process, circumstantial. Thought content, guarded and paranoid. Recent and remote memory, poor. Language, fair to poor. Fund of knowledge, poor. Insight and judgment, impaired. 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 ASSESSMENT/PLAN 1. Supportive psychotherapy and psychoeducation provided to the patient. 2. Educated about benefits and side effects of medication and course and prognosis of illness. Advised to continue with current medication; Remeron 15 mg at bedtime and Risperdal 0.25 mg q.12 hourly. The patient is also on Lexapro 10 mg daily. If needed, consider further adjustment of medication. Please feel free to call if any questions telephone #[phone]. Dictated by... Raul Abdullahi M.D. JENNA/lori TD: 08/07/2016 23:59 JOB #: [id number] Unit #: [id number] #: [id number] Patient: JUANCARLOS,JULY CONSULTATION REPORT Page 1 of 1 X Raul Abdullahi MD CONSULTATION REPORT
--- NOTE | ~2016-08-01 | EKG ---
PATIENT: JUANCARLOSJuly UNIT #: [id number] Ventricular Rate: 78 BPM Atrial Rate: 78 BPM P-R Interval: 148 ms QRS Duration: 80 ms Q-T Interval: 386 ms QTC Calculation(Bezet): 440 ms P [place]: 87 degrees Calculated R [place]: 86 degrees Calculated T [place]: 81 degrees Diagnosis Line: Normal sinus rhythm Diagnosis Line: Right atrial enlargement Diagnosis Line: Minimal voltage criteria for LVH, may be normal Diagnosis Line: variant Diagnosis Line: Poor R wave progression questionable lead position Diagnosis Line: or body habitus Diagnosis Line: Abnormal ECG Diagnosis Line: When compared with ECG of 02-AUG-2016 15:02, Diagnosis Line: (unconfirmed) Diagnosis Line: Nonspecific T wave abnormality no longer evident Diagnosis Line: in Inferior leads Diagnosis Line: T wave inversion no longer evident in Lateral Diagnosis Line: leads Diagnosis Line: Confirmed by MARIAN FISHER MD ([id number]) on Diagnosis Line: 08/02/2016 9:41:41 PM INTERPRETING MD: LIBORIO
--- NOTE | ~2016-08-01 | CO ---
Unit #: [id number] #: [id number] Patient: [id number] [facility] [address] [facility] [facility]. [place], [place] [address] [id number] I MR#: [id number] NAME: KRISTINA BAUER ROOM: 217 Age: 71 Sex: F Admission Date: 08/01/2016 : 1945 Attending Physician: Debbi Galdamez M.D. Primary Care Physician: Solo Echols M.D. Consultation Date: 08/13/2016 CONSULTATION REPORT REASON FOR CONSULTATION Followup. DISCUSSION Ms. Kristina Bauer is a 71-year-old white female, seen in room 217, bed 1 on 08/13/2016 at [facility]. The patient's blood glucose was 252, this morning 190. The patient was compliant, cooperative, redirectable, compliant with medication. No agitation. The patient's vital signs; temperature 98.0, pulse 78, respirations 18, blood pressure 142/49, oxygen saturation 96%. detention worker is currently working on placement. The patient was denied from [place]. Also, referral sent to [place]. The patient is still having problem with memory, confusion, but no agitation, compliant with medication. Denied any suicidal or homicidal ideation. REVIEW OF SYSTEMS Complete review of systems is unremarkable. MENTAL STATUS EXAMINATION General appearance; the patient dressed in hospital attire. The patient is sitting in a propped up position in bed, eating her breakfast. Pleasant, cooperative. Made good eye contact. Attention span and concentration, fair. Speech; regular rate, coherent. Oriented in time, place, and person. Mood and affect were sad, dysphoric, anxious. Thought process, circumstantial. Thought content; guarded, paranoid. The patient denied any thoughts of harming self or others. Recent and remote memory, fair to slightly impaired. Language, intact. Fund of knowledge, fair. Insight and judgment, fair to slightly impaired. DIAGNOSIS Major neurocognitive disorder secondary to Alzheimer disease with behavioral disturbances, F02.81. ASSESSMENT AND PLAN 1. Supportive psychotherapy and psychoeducation provided to the patient. 2. Educated about benefits and side effects of medication and course and prognosis of illness. 3. manager case is currently working on placement at this time. Continue with current medication, Risperdal and Remeron. If needed, consider further adjustment of medication. Please feel free to call if any questions, telephone #[phone]. Dictated by... Unit #: [id number] #: [id number] Patient: JUANCARLOSKRISTINA Trixie Rosas/lori TD: 08/13/2016 16:36 JOB #: [id number] CONSULTATION REPORT Page 1 of 1 X Raul Abdullahi MD X CONSULTATION REPORT
--- NOTE | ~2016-08-01 | US140 ---
[facility] A Service of [facility] RADIOLOGY TEXT RESULTS PATIENT: JUANCARLOS LOCATION: [facility] 563-01 : [birth year] UNIT #: [id number] AGE: [address]: Debbi Galdamez MD SEX: F ORDER DR: [id number] [facility] [address] [place], [place] [address] [id number] I MR#: [id number] Acc #: [id number] NAME: JUANCARLOSJuly : 1945 SEX: F STUDY DATE/TIME: 08/02/2016 15:45 UNIT: [facility] ROOM: [facility] STUDY DESCRIPTION: US UE Veins Unilat or Ltd Stdy Attending Physician: Debbi Galdamez M.D. Ordering Physician: Debbi Galdamez M.D. Primary Care Physician: Solo Echols M.D. MEDICAL IMAGING REPORT This report is preliminary unless electronic signature is present EXAM Color Doppler ultrasound examination of the left upper extremity HISTORY Left upper extremity swelling onset today. Chronic atrial fibrillation. TECHNIQUE Ultrasound evaluation of the upper extremity veins was performed with zheng-scale color-flow and Doppler spectral waveform analysis. FINDINGS All upper extremity veins are easily compressible with good augmentation of flow with distal compression. Doppler waveform patterns are normal. No filling defects are seen. IMPRESSION Normal examination. Dictated by... Dustin Otero M.D. THIS IS AN ELECTRONICALLY VERIFIED REPORT Dustin Otero M.D. at 08/02/2016 10:17 PM RLF/to TD: 08/02/2016 18:35 JOB #: [id number] MEDICAL IMAGING REPORT Page 1 of 1 COPY
--- NOTE | ~2016-08-01 | CO ---
Unit #: [id number] #: [id number] Patient: JUANCARLOS [id number] [facility]. [place], [place] [address] [id number] I MR#: [id number] NAME: JUANCARLOS JULY ROOM: 562 Age: 71 Sex: F Admission Date: 08/01/2016 : 1945 Attending Physician: Debbi Galdamez M.D. Primary Care Physician: Solo Echols M.D. Consultation Date: 08/06/2016 CONSULTATION REPORT REASON FOR CONSULTATION Weight loss. HISTORY Ms. Townsend is a 71-year-old white female. Patient was evaluated in her room and subsequently telephonic discussion was held with her older son and person ipma-[id number] discussion was held with her younger son to get more history and evaluation of her baseline functional status. According to the sons until about three months ago, the patient was a fully functional person. Apparently, she had a stroke at that time and subsequently everything has gone downhill since then. In terms of her ability to remember things, both short term and supervisor intermediates, as well as she has stopped eating and has become a very picky eater and has lost about 20 pounds of weight in the interim. Her hospital admission, however, was precipitated by hypoglycemia and electrolyte abnormalities. The patient was brought to the emergency room by the EMS. She was quite lethargic and had a garbled speech on initial hospitalization. She is becoming increasingly forgetful and paranoid and does not remember fairly common day-to-day things. Both the sons categorically stated that they want her to be placed in an environment which is more like an assisted living. In relation to gastrointestinal symptoms, major problem seems to be weight loss and abdominal pain. Patient mentioned abdominal pain. At the same time, she is not able to qualify its location and has rather diffuse pain. There is no history of any relieving or precipitating factors. She denies any history of nausea, vomiting, or diarrhea. PAST MEDICAL HISTORY 1. History of diabetes. 2. Peripheral neuropathy. 3. COPD with continued cigarette smoking. 4. Previous recent stroke. 5. History of migraine headaches. PAST SURGICAL HISTORY 1. Cholecystectomy. 2. Appendectomy. 3. Right distal humeral fracture. HOME MEDICATIONS 1. Insulin. 2. Codeine. In the hospital, she has been on the following medicines: 1. Remeron. Unit #: [id number] #: [id number] Patient: ROZINA 2. Lopressor. 3. Lexapro. 4. Risperdal. 5. Hydralazine. 6. Ultram. 7. Protonix. 8. NovoLog. 9. Tylenol. 10. IV fluids. ALLERGIES Codeine. SOCIAL HISTORY Lives with her older son, Adi. She smokes one to two packs of cigarettes daily and does not drink alcohol. FAMILY HISTORY Significant for diabetes and breast cancer. No family history of colon/pancreatic cancer or liver disease. REVIEW OF SYSTEMS Detailed review of organ system is impossible to obtain because of the fact the patient is confused, had a slurred speech, and forgetfulness. PHYSICAL EXAMINATION GENERAL: On examination, she is laying in bed and says she does not want to be disturbed. VITAL SIGNS: Her vital signs are stable with a temperature of 98, pulse is 72 per minute and regular, respiratory rate is 16, and blood pressure is 135/49. She weighs 72 pounds. Her baseline weight has varied between 90-100 pounds in the past. HEENT: She has no pallor, icterus, lymphadenopathy, or peripheral edema. CARDIOVASCULAR: Revealed normal heart sounds. No murmurs. LUNGS: Auscultation of the lungs reveals normal breath sounds. Good air entry. ABDOMEN: Soft, nontender. Liver and spleen are not palpable. Bowel sounds normal. DIAGNOSTIC STUDIES LABORATORY: Lab evaluation shows a leukocytosis of 14,000 without left shift. Hemoglobin is normal at 12.6 and platelet count is 251,000 and normal. INR is 1. Serum chemistry shows a normal BUN and creatinine, electrolytes. Albumin 3.3. LFTs otherwise normal. A recent glycohemoglobin is 11 and TSH is also normal. CLINICAL IMPRESSION A detailed discussion was held with both the sons of the patient and the overwhelming emphasis by them was that she is unable to take care of herself and they have their own business and families to take care of and therefore, they would be interested in some sort of placement. The older son also wanted to do whatever it takes to "make the diagnosis" and help mother. They do understand that since her cognitive function has deteriorated after the stroke that its recovery is at best partial and guarded. I also tried to obtain any copy of the living will as patient does seem to have one. The older son told me that it is at home and that he will try and look it up. Patient herself is not able to make any significant decisions because of her mental function; however, I do not Unit #: [id number] #: [id number] Patient: JUANCARLOS,ANA get any sense as to what both sons expectations are in terms of recovery. I did arrange for patient to have an endoscopy and colonoscopy later in the evening after colonic prep and it does seem that she took the colon prep but then she refused the exams and said she was too hungry and was given a meal in the hospital. Under circumstances, I will be on a standby in case the family or the patient change their mind, especially in relation to upper endoscopy as it may show any easily treatable lesion. Secondly, the issue of a possible enteral or percutaneous endoscopic gastrostomy tube was also discussed with the older son and I did not get any definite answer from him. I will re-evaluate the patient today and discuss with the family but for now it does not seem likely that patient wishes to have any evaluation or percutaneous endoscopic gastrostomy tube placement. Thank you very much for asking me to see Ms. Townsend. I appreciate the consult. Dictated by... Trixie Stevens/rd TD: 08/07/2016 11:42 JOB #: [id number] CC: Debbi Galdamez M.D. CONSULTATION REPORT Page 1 of 1 X Uli La MD CONSULTATION REPORT
--- NOTE | ~2016-08-01 | EKG ---
PATIENT: JUANCARLOSJuly UNIT #: [id number] Ventricular Rate: 76 BPM Atrial Rate: 76 BPM P-R Interval: 134 ms QRS Duration: 78 ms Q-T Interval: 408 ms QTC Calculation(Bezet): 459 ms P [place]: 72 degrees Calculated R [place]: 80 degrees Calculated T [place]: 84 degrees Diagnosis Line: Normal sinus rhythm Diagnosis Line: Moderate voltage criteria for LVH, may be normal Diagnosis Line: variant Diagnosis Line: Borderline ECG Diagnosis Line: When compared with ECG of 02-AUG-2016 19:43, Diagnosis Line: No significant change was found Diagnosis Line: Confirmed by MARIAN FISHER MD ([id number]) on Diagnosis Line: 08/04/2016 6:39:27 AM INTERPRETING : LIBORIO
--- NOTE | ~2016-08-01 | CO ---
Unit #: [id number] #: [id number] Patient: [id number] [address] [address] [id number] I MR#: [id number] NAME: KRISTINA BAUER ROOM: 217 Age: 71 Sex: F Admission Date: 08/01/2016 : 1945 Attending Physician: Debbi Galdamez M.D. Primary Care Physician: Solo Echols M.D. Consultation Date: 08/20/2016 CONSULTATION REPORT REASON FOR CONSULTATION Followup. DISCUSSION Ms. Kristina Espinosa is a 71-year-old white female, seen in room 217, bed 1 on 08/20/2016. The patient dressed in street clothes, wearing sneakers, able to sit comfortably in bedside. The patient's mood was irritable, still confused, poor memory but no agitation, easily redirectable, cooperative, compliant with medication. The patient reports having trouble with sleep, decreased appetite. home health care worker is currently working on discharge planning possibly accepted at [facility]. The patient's vital signs; temperature 98.1, pulse 71, respiratory rate 16, blood pressure 113/55, oxygen saturation 98%. MENTAL STATUS EXAMINATION General appearance; the patient dressed casually in street clothes. Vital signs, stable. Attention span and concentration, fair. Speech, slow. Oriented in place and self. Mood and affect, labile. Thought process, circumstantial. Thought content, the patient denied any thoughts of harming self or others or any psychotic symptom. Recent and remote memory, fair to poor. Language, fair. Fund of knowledge, fair. Insight and judgment, fair to slightly impaired. DIAGNOSES Psychiatric: Major neurocognitive disorder secondary to Alzheimer disease without behavioral disturbances, F02.80. ASSESSMENT/PLAN 1. Supportive psychotherapy and psychoeducation provided to the patient. 2. Educated about benefits and side effects of medication and course and prognosis of illness. 3. Advised to continue with current medication and make further adjustment of medication if needed. Please feel free to call if any questions, telephone #[phone]. Dictated by... Raul Abdullahi M.D. JENNA/lori TD: 08/21/2016 01:16 JOB #: [id number] Unit #: [id number] #: [id number] Patient: JUANCARLOS,JULY CONSULTATION REPORT Page 1 of 1 X Raul Abdullahi MD CONSULTATION REPORT
--- NOTE | ~2016-08-01 | CO ---
Unit #: [id number] #: [id number] Patient: [id number] [address] [address] [id number] I MR#: [id number] NAME: KRISTINA BAUER ROOM: 217 Age: 71 Sex: F Admission Date: 08/01/2016 : 1945 Attending Physician: Debbi Galdamez M.D. Primary Care Physician: Solo Echols M.D. Consultation Date: 08/14/2016 CONSULTATION REPORT REASON FOR CONSULTATION Followup. DISCUSSION Ms. Kristina Bauer is a 71-year-old white female seen in room 217, bed 1 on August 14, 2016. Patient was pleasant and cooperative during the interview, lying comfortably in bed. Patient reports eating her breakfast, sleeping good, tolerating medications fairly well. No agitation or aggression. The patient still having problem with memory but no agitation or aggression. Vital signs stable, 98.2, 76, 16, 130/54, oxygen saturation 98%. sheltered workshop worker is currently working on placement, sent referrals. Denied for [place] placement. Patient denied any complaints. REVIEW OF SYSTEMS A complete review of systems unremarkable. MENTAL STATUS EXAMINATION General appearance: Patient dressed in hospital attire, lying comfortably in bed, pleasant, cooperative. Attention span and concentration fair. Speech: Regular rate. Oriented in place and person. Mood and affect sad, dysphoric, flat. Thought process circumstantial. Thought content guarded. Denied any thoughts of harming self or others. Recent and remote memory fair to slightly impaired. Language fair. Fund of knowledge fair. Insight and judgment fair to slightly impaired. DIAGNOSIS PSYCHIATRIC: Major neurocognitive disorder due to Alzheimer disease without behavioral disturbances, F02.80. ASSESSMENT AND PLAN 1. Supportive psychotherapy and psychoeducation provided to patient. 2. Educated about benefits and side effects of medications and course and prognosis of illness. 3. Advised to continue with current combination of medication. If needed, consider further adjustment of medication. We will continue to follow. Please feel free to call if any questions, . Dictated by... Raul Abdullahi M.D. [facility]/ Unit #: [id number] #: [id number] Patient: JUANCARLOSJULY TD: 08/14/2016 17:16 JOB #: [id number] CONSULTATION REPORT Page 1 of 1 X Raul Abdullahi MD CONSULTATION REPORT
--- NOTE | ~2016-08-01 | CO ---
Unit #: [id number] #: [id number] Patient: [id number] [facility] [address] [facility]. [place], [place] [address] [id number] I MR#: [id number] NAME: KRISTINA BAUER ROOM: 217 Age: 71 Sex: F Admission Date: 08/01/2016 : 1945 Attending Physician: Debbi Galdamez M.D. Primary Care Physician: Solo Echols M.D. Consultation Date: 08/11/2016 CONSULTATION REPORT REASON FOR CONSULTATION Followup. DISCUSSION Ms. Kristina Espinosa is a 71-year-old female, seen in room 217, bed 1 on 08/11/2016 at [facility]. The patient was sitting in a propped up position, dressed in hospital attire. Pleasant and cooperative. Able to eat her lunch. The patient was alert, awake, tolerating the medication fairly well. No agitation or aggression. Denied any thoughts of harming self or others, or any psychotic symptom. The patient's last blood sugar was 313. The patient's vital signs; temperature 99.1, pulse 81, respirations 18, blood pressure 161/56, oxygen saturation 100%. REVIEW OF SYSTEMS Complete review of systems is unremarkable. MENTAL STATUS EXAMINATION General appearance; the patient dressed in hospital attire, sitting in a propped up position. Pleasant and cooperative. No aggression. Attention span and concentration, fair. Speech, regular rate. Oriented in time, place, and person. Mood and affect were labile. Thought process, circumstantial. Thought content; guarded, paranoid, but denied any thoughts of harming self or others. Recent and remote memory, fair to slightly impaired. Language, intact. Fund of knowledge, fair. Insight and judgment, fair to slightly impaired. DIAGNOSIS Major neurocognitive disorder secondary to Alzheimer disease with behavioral disturbances, F02.81. ASSESSMENT AND PLAN 1. Supportive psychotherapy and psychoeducation provided to the patient. 2. Educated about benefits and side effects of medication and course and prognosis of illness. 3. Advised to continue with current medication, combination of Risperdal and Remeron. If needed, consider further adjustment of medication. Please feel free to call if any questions, telephone #[phone]. Dictated by... Trixie Rosas/lori Unit #: [id number] #: [id number] Patient: JUANCARLOS TD: 08/12/2016 13:42 JOB #: [id number] CONSULTATION REPORT Page 1 of 1 X Raul Abdullahi MD CONSULTATION REPORT
--- NOTE | ~2016-08-01 | EKG ---
PATIENT: JUANCARLOSJuly UNIT #: [id number] Ventricular Rate: 77 BPM Atrial Rate: 77 BPM P-R Interval: 138 ms QRS Duration: 78 ms Q-T Interval: 358 ms QTC Calculation(Bezet): 405 ms P [place]: 84 degrees Calculated R [place]: 82 degrees Calculated T [place]: 77 degrees Diagnosis Line: Normal sinus rhythm Diagnosis Line: Right atrial enlargement Diagnosis Line: Septal infarct , age undetermined Diagnosis Line: Abnormal ECG Diagnosis Line: When compared with ECG of 03-AUG-2016 05:42, Diagnosis Line: QT has shortened Diagnosis Line: Confirmed by MAGUI MERCHANT MD ([id number]) on Diagnosis Line: 08/14/2016 4:35:34 PM INTERPRETING MD: MAYUR LOMBARDO
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
--- NOTE | ~2016-08-01 | FU ---
[facility] Nutrition Therapy DATE: 08/20/16 Patient: ANA BAUER Physician: KRISTA Address: [address] [place] [address] Room/Bed: [address] [place] [address], Zip: [place] [address] Admit Date: 08/01/16 Date of : [birth year] Height: 5 1 Weight: 72 32.8 NUTRITION MONITORING/FOLLOW-UP: Reason: PT SEEN FOR FOLLOW-UP DX: HYPOGLYCEMIA, NEW A-FIB Anthropometrics: ", WT: 72# (33 KG) (FROM 08/08/16), BMI: 14.5 -WEIGHTS HAVE RANGED 70-80# SINCE ADMIT (ADMIT WEIGHT: 74#) Labs: GLU: 180, CREAT: 0.5, A1c: 11.4 Meds: PROTONIX, NOVOLOG, LAXATIVE OF CHOICE, NACL, LEVEMIR, REMERON I&O's: 1150/907, 2 BMs NOTED Skin: PREVIOUSLY NOTED Estimated Nutrition Needs: INCREASED NUTRIENT NEEDS 2' PT UNDERWEIGHT Assessment: CHART REVIEWED AND EVENTS NOTED. PT SEEN FOR FOLLOW-UP. PT REPORTS GOOD PO INTAKE AND APPETITE, NOTING NO C/O N/V/D. PT HAD BREAKFAST TRAY AT BEDSIDE-NOTED PT ATE 100%. PT REPORTS "I WANT TO GO HOME". THIS RD ENCOURAGED ADEQUATE KCAL AND PROTEIN INTAKE, MA AGREED. OF NOTE, INTERNATIONAL ACCOUNT EXECUTIVE RECOMMENDS PT FOLLOW A MECHANICAL SOFT + NECTAR THICK LIQUID DIET, PT HAD ENSURE SHAKE ON BREAKFAST TRAY (DRANK 100% OF SHAKE). PT REPORTED NO ISSUES SWALLOWING THE ENSURE SHAKE. PT DID REQUEST VANILLA ENSURE PUDDING BID, RD TO RE-ORDER. PT REPORTED NO DIET QUESTIONS AT THIS TIME. RD TO REMAIN AVAILABLE. PER CHART, AWAITING PLACEMENT, ?D/C PLANS 1-2 DAYS. Dx: UNDERWEIGHT R/T LIFESTYLE AEB BMI OF 14.5.-ACTIVE Intervention: 1. MECHANICAL SOFT + NECTAR THICK LIQUIDS 2. Monitoring, Evaluation and Goals: 1. ORAL INTAKE; CONSUME >50% OF MEALS AND SUPPLEMENTS W/NO C/O N/V/D-ACTIVE/MET 2. LABS; WNL-ACTIVE 3. WEIGHTS; PROMOTE GRADUAL WEIGHT GAIN-ACTIVE MONITOR: -PO INTAKE/APPETITE -WEIGHTS -SUPPLEMENT INTAKE Recommendations: [facility] Nutrition Therapy DATE: 08/20/16 Patient: JULY JUANCARLOS Physician: KRISTA Address: [address] [place] [address] Room/Bed: [address] [place] [address], Zip: [place] [address] Admit Date: 08/01/16 Date of : [birth year] Height: 5 1 Weight: 72 32.8 1. PLEASE OBTAIN CURRENT/UPDATED WEIGHT IN Where FOR MONITORING PURPOSES 2. PLEASE RE-ORDER VANILLA ENSURE PUDDING BID W/MEALS. PLEASE D/C ENSURE SHAKES 3. APPRECIATE STAFF TO CONTINUE TO ENCOURAGE ADEQUATE KCAL AND PROTEIN INTAKE RD WILL F/U PER PROTOCOL PT IS MILDLY COMPROMISED Respectfully, PIERCE PARKS MS, RD, LD Food and Nutritional Services [facility] cc: client file
[2016-08-01 21:06] LABS: BASOPHIL# 0.1 X10e3 (0-0.3); BASOPHIL% 0.6 % (0-2.5); EOSINOPHIL% 0.2 % (0.0-7.0); HEMATOCRIT 38.9 % (35.0-45.0); HEMOGLOBIN 13.3 gm/dL (12.0-16.0); LYMPHOCYTE# 1.8 X10e3 (1.0-3.5); LYMPHOCYTE% 12.9 % (17.0-45.0); MEAN CELL VOLUME 89.7 FL (83-96); MEAN CORPUSCULAR HEMOGLOBIN 30.6 PG (28-34); MEAN CORPUSCULAR HGB CONC 34.1 g/dL (30-36); MEAN PLATELET VOLUME 9.8 FL (6.5-11.5); MONOCYTE# 0.9 X10e3 (0-1.0); MONOCYTE% 6.3 % (3.0-12.0); NEUTROPHIL# 10.8 X10e3 (1.5-7.1); PLATELET COUNT 310 X10e3 (140-420); RED BLOOD COUNT 4.33 X10e (3.90-5.30); RED CELL DISTRIBUTION WIDTH 13.7 % (11.0-15.5); WHITE BLOOD COUNT 13.5 X10e3 (4.0-10.5)
[2016-08-01 21:07] LABS: DIFF IND NO
[2016-08-01 21:17] LABS: POC - CKMB 1.8 ng/mL (0.0-7.9); POC - TROPONIN <0.05 ng/mL (<=0.05)
[2016-08-01 21:52] LABS: PARTIAL THROMBOPLASTIN TIME 25.1 SECONDS (23.5-31.3)
[2016-08-01 22:33] LABS: ALBUMIN SERUM 3.3 g/dL (3.5-5.0); BILIRUBIN, DIRECT 0.1 mg/dL (0.0-0.2); BILIRUBIN,INDIRECT 0.4 mg/dL (0.0-0.9); BILIRUBIN,TOTAL 0.5 mg/dL (0.2-2.0); CALCIUM SERUM 8.3 mg/dL (8.4-10.2); CREATININE SERUM 0.5 mg/dL (0.6-1.4); GLOM FILT RATE Estimated 98.1 mL/min (>60); MAGNESIUM 1.5 mg/dL (1.6-3.0); PROTEIN TOTAL SERUM 6.1 g/dL (6.0-8.3)
[2016-08-01 22:34] LABS: POTASSIUM 1.8 mmol/L (3.5-5.1)
[2016-08-01 23:28] LABS: URINE SOURCE CATH
[2016-08-01 23:35] LABS: URINE APPEARANCE CLEAR; URINE BILIRUBIN NEG (NEG); URINE BLOOD 1+ (NEG); URINE COLOR YELLOW; URINE GLUCOSE NEG (NEG); URINE KETONE NEG (NEG); URINE LEUKOCYTE ESTERASE NEG (NEG); URINE NITRATE NEG (NEG); URINE PROTEIN NEG (NEG); URINE UROBILINOGEN 0.2 MG/DL (NEG)
[2016-08-01 23:38] LABS: CULTURE INDICATED? NO; URINE BACTERIA AUWI NEG (NEGATIVE); URINE SQUAMOUS EPITHELIAL CELL NONE SEEN /[HPF]; UWBCS1 AUWI 0-2 (0-5)
[2016-08-02 03:33] LABS: BASOPHIL% 0.6 % (0-2.5); EOSINOPHIL% 0.3 % (0.0-7.0); HEMATOCRIT 41.3 % (35.0-45.0); HEMOGLOBIN 13.7 gm/dL (12.0-16.0); LYMPHOCYTE# 1.8 X10e3 (1.0-3.5); LYMPHOCYTE% 20.1 % (17.0-45.0); MEAN CELL VOLUME 91.5 FL (83-96); MEAN CORPUSCULAR HEMOGLOBIN 30.5 PG (28-34); MEAN CORPUSCULAR HGB CONC 33.3 g/dL (30-36); MEAN PLATELET VOLUME 9.7 FL (6.5-11.5); MONOCYTE# 0.6 X10e3 (0-1.0); MONOCYTE% 6.9 % (3.0-12.0); NEUTROPHIL# 6.3 X10e3 (1.5-7.1); NEUTROPHIL% 72.1 % (40-75); PLATELET COUNT 267 X10e3 (140-420); RED BLOOD COUNT 4.51 X10e (3.90-5.30); RED CELL DISTRIBUTION WIDTH 13.9 % (11.0-15.5); WHITE BLOOD COUNT 8.7 X10e3 (4.0-10.5)
[2016-08-02 03:34] LABS: DIFF IND NO
[2016-08-02 04:05] LABS: BUN/CREATININE RATIO 27.5; CALCIUM SERUM 8.5 mg/dL (8.4-10.2); CREATININE SERUM 0.4 mg/dL (0.6-1.4); GLOM FILT RATE Estimated 105.6 mL/min (>60); MAGNESIUM 2.5 mg/dL (1.6-3.0); POTASSIUM 3.4 mmol/L (3.5-5.1)
[2016-08-02 04:22] LABS: MB 3.2 ng/ml
[2016-08-02 04:31] LABS: THYROID STIMULATING HORMONE 1.05 uIU/ml (0.34-5.60)
[2016-08-02 04:38] LABS: FREE THYROXIN (T4) 0.91 ng/dL (0.58-1.64)
[2016-08-02 10:39] LABS: %MB 3.2 % (0.0-4.0); MB 2.6 ng/ml
[2016-08-02] MEDS ORDERED: ZOFRAN ODT4 MG PO (19:31)
[2016-08-02] MEDS ORDERED: OMEPRAZOLE40 M1 PO (19:31)
[2016-08-02] MEDS ORDERED: HUMALOG MI100 UNIT/1 SUBQ ×2 (19:32→19:33)
[2016-08-02] MEDS ORDERED: TRAMADOL HCL50 M1 PO (19:34)
[2016-08-03 08:21] LABS: HEMATOCRIT 37.4 % (35.0-45.0); HEMOGLOBIN 12.4 gm/dL (12.0-16.0); MEAN CELL VOLUME 93.2 FL (83-96); MEAN CORPUSCULAR HEMOGLOBIN 30.8 PG (28-34); MEAN CORPUSCULAR HGB CONC 33.1 g/dL (30-36); RED BLOOD COUNT 4.02 X10e (3.90-5.30); RED CELL DISTRIBUTION WIDTH 13.7 % (11.0-15.5); WHITE BLOOD COUNT 10.4 X10e3 (4.0-10.5)
[2016-08-03 09:53] LABS: BUN/CREATININE RATIO 36.66; CALCIUM SERUM 8.7 mg/dL (8.4-10.2); CREATININE SERUM 0.3 mg/dL (0.6-1.4); GLOM FILT RATE Estimated 116.1 mL/min (>60); MAGNESIUM 1.6 mg/dL (1.6-3.0); POTASSIUM 3.4 mmol/L (3.5-5.1)
[2016-08-04 05:21] LABS: HEMATOCRIT 38.5 % (35.0-45.0); HEMOGLOBIN 12.6 gm/dL (12.0-16.0); MEAN CELL VOLUME 92.9 FL (83-96); MEAN CORPUSCULAR HEMOGLOBIN 30.4 PG (28-34); MEAN CORPUSCULAR HGB CONC 32.8 g/dL (30-36); MEAN PLATELET VOLUME 10.6 FL (6.5-11.5); RED BLOOD COUNT 4.14 X10e (3.90-5.30); RED CELL DISTRIBUTION WIDTH 13.7 % (11.0-15.5)
[2016-08-04 06:18] LABS: CALCIUM SERUM 8.6 mg/dL (8.4-10.2); CREATININE SERUM 0.4 mg/dL (0.6-1.4); GLOM FILT RATE Estimated 105.6 mL/min (>60); POTASSIUM 3.6 mmol/L (3.5-5.1)
[2016-08-07 06:33] LABS: HEMATOCRIT 36.2 % (35.0-45.0); HEMOGLOBIN 11.9 gm/dL (12.0-16.0); MEAN CELL VOLUME 92.7 FL (83-96); MEAN CORPUSCULAR HEMOGLOBIN 30.6 PG (28-34); RED BLOOD COUNT 3.9 X10e (3.90-5.30); RED CELL DISTRIBUTION WIDTH 13.4 % (11.0-15.5)
[2016-08-07 07:30] LABS: BUN/CREATININE RATIO 17.5; CALCIUM SERUM 8.5 mg/dL (8.4-10.2); CREATININE SERUM 0.4 mg/dL (0.6-1.4); GLOM FILT RATE Estimated 105.6 mL/min (>60)
[2016-08-07 07:35] LABS: POTASSIUM 2.4 mmol/L (3.5-5.1)
[2016-08-08 06:20] LABS: HEMOGLOBIN 11.2 gm/dL (12.0-16.0); MEAN CELL VOLUME 93.1 FL (83-96); MEAN CORPUSCULAR HEMOGLOBIN 30.7 PG (28-34); MEAN PLATELET VOLUME 9.7 FL (6.5-11.5); RED BLOOD COUNT 3.65 X10e (3.90-5.30); RED CELL DISTRIBUTION WIDTH 13.3 % (11.0-15.5); WHITE BLOOD COUNT 11.6 X10e3 (4.0-10.5)
[2016-08-08 06:49] LABS: CALCIUM SERUM 8.7 mg/dL (8.4-10.2); CREATININE SERUM 0.4 mg/dL (0.6-1.4); GLOM FILT RATE Estimated 105.6 mL/min (>60); POTASSIUM 3.3 mmol/L (3.5-5.1)
[2016-08-09 06:12] LABS: MEAN CELL VOLUME 95.2 FL (83-96); MEAN CORPUSCULAR HEMOGLOBIN 30.8 PG (28-34); MEAN CORPUSCULAR HGB CONC 32.4 g/dL (30-36); MEAN PLATELET VOLUME 9.4 FL (6.5-11.5); RED BLOOD COUNT 3.57 X10e (3.90-5.30); RED CELL DISTRIBUTION WIDTH 13.2 % (11.0-15.5)
[2016-08-09 07:23] LABS: BUN/CREATININE RATIO 38.33; CREATININE SERUM 0.6 mg/dL (0.6-1.4); GLOM FILT RATE Estimated 92.4 mL/min (>60); POTASSIUM 4.1 mmol/L (3.5-5.1)
[2016-08-10 06:36] LABS: CALCIUM SERUM 9.2 mg/dL (8.4-10.2); CREATININE SERUM 0.4 mg/dL (0.6-1.4); GLOM FILT RATE Estimated 105.6 mL/min (>60); MAGNESIUM 1.6 mg/dL (1.6-3.0); POTASSIUM 3.9 mmol/L (3.5-5.1)
[2016-08-14 06:56] LABS: HEMATOCRIT 35.8 % (35.0-45.0); HEMOGLOBIN 11.6 gm/dL (12.0-16.0); MEAN CELL VOLUME 93.6 FL (83-96); MEAN CORPUSCULAR HEMOGLOBIN 30.2 PG (28-34); MEAN CORPUSCULAR HGB CONC 32.3 g/dL (30-36); MEAN PLATELET VOLUME 9.2 FL (6.5-11.5); RED BLOOD COUNT 3.83 X10e (3.90-5.30); RED CELL DISTRIBUTION WIDTH 12.7 % (11.0-15.5)
[2016-08-14 07:37] LABS: CALCIUM SERUM 9.7 mg/dL (8.4-10.2); CREATININE SERUM 0.5 mg/dL (0.6-1.4); GLOM FILT RATE Estimated 98.1 mL/min (>60); POTASSIUM 5.1 mmol/L (3.5-5.1)
== END 2016-08-20 18:20 | DRG 308 ==
LOC: CED 22:03 → CEDOF 23:00 → C5C 08-02 08:19 → C5B 08-04 22:01 → C2A 08-08 12:13
PROVIDERS: Emergency Medicine; Family Medicine; Internal Medicine; Physician Assistant Medical
PROC: B24BYZZ Ultrasonography of Heart with Aorta using Other Contrast (ICD-10-PCS; principal; 2016-08-02)
DX: I48.91 Unspecified atrial fibrillation (principal); E43 Unspecified severe protein-calorie malnutrition; J44.9 Chronic obstructive pulmonary disease, unspecified; E11.649 Type 2 diabetes mellitus with hypoglycemia without coma; E11.42 Type 2 diabetes mellitus with diabetic polyneuropathy; G30.9 Alzheimer's disease, unspecified; F02.81 Dementia in other diseases classified elsewhere, unspecified severity, with behavioral disturbance; Z68.1 Body mass index [BMI] 19.9 or less, adult; Z79.4 Long term (current) use of insulin; G43.909 Migraine, unspecified, not intractable, without status migrainosus; F17.210 Nicotine dependence, cigarettes, uncomplicated; Z86.73 Personal history of transient ischemic attack (TIA), and cerebral infarction without residual deficits; M19.90 Unspecified osteoarthritis, unspecified site; Z90.49 Acquired absence of other specified parts of digestive tract; E87.6 Hypokalemia; E83.42 Hypomagnesemia; F22 Delusional disorders; F39 Unspecified mood [affective] disorder; R74.9 Abnormal serum enzyme level, unspecified; I10 Essential (primary) hypertension; R62.7 Adult failure to thrive
CPT/HCPCS: 36415; 71010; 71250; 74176; 80048; 80076; 81003; 82274; 82378; 82550; 82553; 82607; 82947; 83036; 83735; 83880; 84439; 84443; 84484; 85025; 85027; 85610; 85730; 86301; 87086; 92526; 92610; 93005; 93306; 93971; 96374; 96375; 97163; 97166; 99285; G8987-GO; G8988-GO; G8989-GO; G8990-GP; G8991-GP; G8992-GP; G8996-GN; G8997-GN; G8998-GN; J0360; J0780; J1200; J1630; J1815; J2270; J3475